=== PATIENT | male | born 1985 | race Caucasian/White ===

== ENCOUNTER 2017-03-26 22:19 | Emergency (ER) | payer SELFPAY ==
[~2017-03-26] VITALS: Ht 170.2 cm; Wt 74.8 kg
[2017-03-27] MEDS ORDERED: IBUPROFEN 600MG TABLET PO ONE (02:15)
[2017-03-27 03:25] VITALS: BP 99/69
== END 2017-03-27 03:56 | disposition home or self-care (01) ==
LOC: ER 23:07
DX: M25.571 Pain in right ankle and joints of right foot (principal); X58.XXXA Exposure to other specified factors, initial encounter; Y93.89 Activity, other specified; Y92.89 Other specified places as the place of occurrence of the external cause; Y99.8 Other external cause status
CPT/HCPCS: 73610; 99284; Z7610